=== PATIENT | male | born 1990 | race Hispanic/Latino ===

== ENCOUNTER 2022-06-06 12:00 | Day surgery (SDC) | payer BC ==
[~2022-06-06 12:00] MED LIST: HYDROcodone/ACETAMINOPHEN 5-325 MG TAB PO PRN; HYDROmorphone 0.5 MG/0.5 ML INJ IV PRN; LACTATED RINGERS 1,000 ML IV SCH; MIDAZOLAM 2 MG/2 ML INJ IV NR
[2022-06-06] MEDS ORDERED: HYDROmorphone 0.5 MG/0.5 ML INJ IV PRN (12:04)
[2022-06-06] MEDS ORDERED: HYDROcodone/ACETAMINOPHEN 5-325 MG TAB PO PRN (12:04)
[2022-06-06] MEDS ORDERED: ONDANSETRON 4 MG/2 ML INJ IV PRN (12:04)
--- NOTE | 2022-06-06 12:32 | Anesthesia Consultation ---
Anesthesia Consult and Med Hx Date of service: 06/06/22 - Airway Anesthetic Teeth Evaluation: Good ROM Head & Neck: Adequate Mental/Hyoid Distance: Adequate Mallampati Class: Class I Intubation Access Assessment: Good - Pre-Operative Health Status ASA Pre-Surgery Classification: ASA2 Proposed Anesthetic Plan: General - Pulmonary Hx Smoking: Yes (3-4cigs/day) Hx Respiratory Symptoms: No - Cardiovascular System Hx Hypertension: No - Central Nervous System CVA: No - Endocrine Hx Renal Disease: No Hx Liver Disease: No Hx Insulin Dependent Diabetes: No Hx Non-Insulin Dependent Diabetes: No Hx Thyroid Disease: No - Other Systems Hx Obesity: No - Additional Comments Anesthesia Medical History Comments: No hx anesthetic complications.
--- NOTE | 2022-06-06 12:32 | Anesthesia Day of Surgery ---
Anesthesia Day of Surgery - Day of Surgery Patient Examined: Yes Patient H&P Reviewed: Yes Patient is NPO: Yes
[2022-06-06] MEDS ORDERED: NEOMY 40 MG/POLYMYXIN B 200,000 UNITS/ML (GU) AMPULE IR ONE ×2 (12:47→15:26)
[2022-06-06] MEDS ORDERED: MIDAZOLAM 2 MG/2 ML INJ IV NR (13:00)
[2022-06-06] MEDS ORDERED: LACTATED RINGERS 1,000 ML IV SCH (13:00)
[2022-06-06] MEDS ORDERED: HYDROmorphone 1 MG/1 ML INJ ONE (13:14)
[2022-06-06] MEDS ORDERED: propofoL 200 MG/20 ML VIAL IV ONE (13:14)
[2022-06-06] MEDS ORDERED: LIDOCAINE MPF (2%) 20 MG/1 ML VIAL 5 ML ONE (13:14)
[2022-06-06] MEDS ORDERED: VANCOMYCIN/NS 1 GM/250 ML 1 GM/250 ML BAG IV NR (14:00)
[2022-06-06] MEDS ORDERED: ONDANSETRON 4 MG/2 ML INJ ONE (14:39)
--- NOTE | 2022-06-06 14:40 | Discharge Summary ---
Short Stay Discharge Plan Activity: no restrictions Weight Bearing Status: Weight Bear as Tolerated Diet: regular Wound: keep clean and dry (leave dressing in place) Follow up with: RAGHAV SALGUERO II, MD [Staff Physician] - 7 Days
[2022-06-06] MEDS ORDERED: SODIUM CHLORIDE 0.9% IRR 1,000 ML BOTTLE IR ONE (15:26)
--- NOTE | 2022-06-06 17:04 | Post Anesthesia Evaluation ---
- Post Anesthesia Evaluation Patient Participated: Yes Airway Patent: Yes Stable Respiratory Function: Yes Nausea/Vomiting: No Temp > 96.8F: Yes Pain Manageable: Yes Adequeate Hydration: Yes Anesthesia Complications: No
[2022-06-06 17:06] VITALS: BP 116/80
--- NOTE | 2022-06-07 11:03 | Operative Report ---
Operative Report Operative Report: Preop diagnosis: Left index finger infection Postop diagnosis: Same Procedure performed irrigation and debridement of left index finger Surgeon: Ortiz Timmons MD Support Technician: None Anesthesia: General EBL: Minimal Complications: None Specimens: Left hand infection Examination under anesthesia: Patient was noted to have a purulent discharge from the ulnar aspect of the left index finger there were multiple pins from previous surgery Indications: Patient is a 31-year-old male who had previously undergone a de bridement and percutaneous pinning of a phalanx fracture for the left index finger. The patient has subsequently come back to the office which purulent drainage and was recommended patient undergo irrigation and debridement. The risk benefits and limitations of surgery were discussed with the patient including bleeding infection injury nerves and blood vessels need for reoperation. The patient understand the risks and consented to undergo surgery. Technique: In the preop holding area the site was marked with surgical marking pen. The patient was brought to the operating room prepped draped sterile fashion in the supine position. The ulnar aspect of the left index finger was noted to have purulent drainage cultures were obtained then IV antibiotics was administered vancomycin. Blunt dissection was used to open up any abscess pockets. The wound was relatively benign after the initial debridement. 3 L of normal saline were used to flush the wound there did appear to be connection of the wound to the dorsal aspect of the left index finger which was probed as well. It was not possible to close the ulnar-sided wound therefore it was packed with iodoform gauze. One of the pins from previous percutaneous pinning was loose and came out during the course of the surgery. The remaining pins appear to be stable. Wound was irrigated and dressed sterilely. Patient was awakened and taken to cover him in stable condition. Postop plan: Patient will follow up with us in the office in 2 days he is already on antibiotics that were prescribed by infectious disease which she should continue.
== END 2022-06-06 16:15 | disposition home or self-care (01) ==
LOC: OR 12:00
PROVIDERS: ATTEND Orthopaedic Surgery Sports Medicine
DX: L08.89 Other specified local infections of the skin and subcutaneous tissue (principal); S62.641A Nondisplaced fracture of proximal phalanx of left index finger, initial encounter for closed fracture; F17.210 Nicotine dependence, cigarettes, uncomplicated; Z88.0 Allergy status to penicillin; X58.XXXA Exposure to other specified factors, initial encounter; Y93.89 Activity, other specified; Y92.89 Other specified places as the place of occurrence of the external cause; Y99.8 Other external cause status
CPT/HCPCS: 11042; 87075; 87076; 87116; 87186; J1170; J2250; J2405; J2704; J3370; J7120